=== PATIENT | female | born 1975 | race Caucasian/White ===

== ENCOUNTER → 2017-05-22 | Outpatient (CLI) | payer BC ==
[~2017-05-22] MED LIST: NABUMETONE PO; PROZAC PO; SKELAXIN PO; TOPROL XL PO; ZOCOR PO
--- NOTE | ~2017-05-22 | MY29 ---
[facility] A Service of [facility] RADIOLOGY TEXT RESULTS PATIENT: IDA GONG LOCATION: [facility] : 71 UNIT #: [id number] AGE: [address]: Terri Gaytan MD SEX: F ORDER DR: [id number] [facility] [address]. [place], [place] [address] [id number] O MR#: [id number] Acc #: [id number] NAME: IDA GONG : 1975 SEX: F STUDY DATE/TIME: 05/22/2017 13:19 UNIT: [facility] ROOM: STUDY DESCRIPTION: [facility] SCREENING W/ CAD BILAT Attending Physician: Terri Gaytan M.D. Referring Physician: Terri Gaytan M.D. Ordering Physician: Terri Gaytan M.D. Primary Care Physician: Terri Gaytan M.D. MEDICAL IMAGING REPORT This report is preliminary unless electronic signature is present EXAM Bilateral digital screening mammogram with CAD, 05/22/2017 INDICATION 42-year-old female for routine screening. No reported problems and no personal or family history of breast cancer. No surgeries. TECHNIQUE CC and MLO views of the breasts were obtained and reviewed with an FDA-approved CAD device. COMPARISON 03/17/2015, 06/16/2013, 09/19/2011 FINDINGS Breast parenchyma is composed of scattered fibroglandular densities. The pattern is unchanged. There is no new dominant nodule, mass or suspicious cluster of microcalcifications. Faint benign-appearing nodularity bilaterally in the subareolar right breast and upper outer posterior left breast stable. Benign calcifications present. IMPRESSION Benign screening mammogram. One year followup recommended. Patients over the age of 40 are entered into a reminder system with target due date for the next mammogram. A result letter will also be sent to the patient. BIRADS: 2 Benign Finding Dictated by... Mayco Savage M.D. [facility] A Service of [facility] RADIOLOGY TEXT RESULTS PATIENT: IDA GONG LOCATION: [facility] : 71 UNIT #: [id number] AGE: [address]: Terri Gaytan MD SEX: F ORDER DR: THIS IS AN ELECTRONICALLY VERIFIED REPORT Mayco Savage M.D. at 05/22/2017 4:25 PM Noreen TD: 05/22/2017 14:59 JOB #: [id number] MEDICAL IMAGING REPORT Page 1 of 1 COPY
== END | disposition home or self-care (01) ==
LOC: CWCC 12:45
DX: Z12.31 Encounter for screening mammogram for malignant neoplasm of breast (principal)
CPT/HCPCS: G0202